=== PATIENT | female | born 1945 | race Hispanic/Latino ===

== ENCOUNTER 2024-05-04 11:39 | Inpatient (IN) | payer MEDICARE ==
[~2024-05-04] VITALS: Ht 152.4 cm; Wt 53.5 kg
[2024-05-04 11:43] VITALS: TEMP 98.3
[2024-05-04] MEDS: ASPIRIN 81 MG CHEW TAB PO ONE ×2 (12:12→13:05)
[2024-05-04] MEDS: FAMOTIDINE 20 MG/2 ML VIAL IV ONE (12:12)
[2024-05-04] MEDS: ACETAMINOPHEN 325 MG TAB PO ONE (12:13)
[2024-05-04] MEDS ORDERED: SODIUM CHLORIDE FLUSH 10 ML SYR INJ PRN (13:00)
[2024-05-04] MEDS: FAMOTIDINE 20 MG TAB PO SCH (13:00)
[2024-05-04] MEDS ORDERED: ZOLPIDEM TARTRATE 5 MG TAB PO PRN (13:15)
[2024-05-04] MEDS ORDERED: ONDANSETRON HCL INJ 2MG/ML 2ML 2 MG/ML VIAL IV PRN (13:15)
[2024-05-04] MEDS ORDERED: DIPHENHYDRAMINE HCL INJ 50 MG/ML VIAL IV PRN (13:15)
[2024-05-04] MEDS ORDERED: ACETAMINOPHEN 325 MG TAB PO PRN (13:15)
[2024-05-04 13:34] VITALS: PULSE 61; RESP 16
[2024-05-04 15:20] VITALS: BP 148/75; PULSE 62; RESP 18; TEMP 98.1; O2SAT 100
[2024-05-04 15:26] VITALS: BP 145/77; PULSE 62; RESP 18; TEMP 98.1; O2SAT 100
[2024-05-04] MEDS: METOPROLOL TARTRATE 25 MG TAB PO SCH (16:25)
[2024-05-04 19:53] VITALS: BP 148/75; PULSE 62; RESP 18; TEMP 98.1; O2SAT 100
[2024-05-04 20:25] VITALS: BP 95/48; PULSE 61; RESP 17; TEMP 97.9; O2SAT 100
[2024-05-04] MEDS: SIMVASTATIN 40 MG TAB PO SCH (21:09)
[2024-05-04 22:35] LABS: TROPONIN I 0.01 ng/mL (0-0.300)
[2024-05-04] MEDS ORDERED: LORATADINE 10 MG TAB PO PRN (23:15)
[2024-05-04] MEDS ORDERED: DOCUSATE SODIUM 100 MG CAP PO PRN (23:15)
[2024-05-04] MEDS ORDERED: FLUTICASONE PROPIONATE NASAL SPRAY NS PRN (23:15)
[2024-05-04] MEDS ORDERED: GUAIFENESIN/DEXTROMETHORPHAN LIQD 5 ML UDC PO PRN (23:15)
[2024-05-04] MEDS ORDERED: HYDRALAZINE HCL 20 MG/ML VIAL IV PRN (23:15)
[2024-05-04] MEDS ORDERED: MELATONIN 3 MG TAB PO PRN (23:15)
[2024-05-05] VITALS (9 sets, daily range): BP systolic 97–150; BP diastolic 55–90; PULSE 51–65; RESP 17–18; TEMP 97.6–98.6; O2SAT 98–100
[2024-05-05 07:06] LABS: BASOPHILS # (AUTO) 0.1 (0.0-0.1); BASOPHILS % 2.3 % (0.0-1.0); EOSINOPHILS # (AUTO) 0.4 (0.0-0.4); EOSINOPHILS % 9.6 % (0.0-6.0); HEMATOCRIT 39.4 % (34.2-44.1); HEMOGLOBIN 12.2 g/dL (12.0-16.0); LYMPHOCYTES # (AUTO) 1.1 (1.0-3.2); MEAN CORPUSCULAR HEMOGLOBIN 29.8 pg (28-32); MEAN CORPUSCULAR VOLUME 96.1 fL (81-99); MONOCYTES # (AUTO) 0.4 (0.2-0.8); MONOCYTES % 9.1 % (4.4-11.3); NEUTROPHILS # (AUTO) 2.3 (2.1-6.9); NEUTROPHILS % 53.8 % (38.7-80.0); PLATELET COUNT 203 x10e3/uL (140-360); RED CELL DISTRIBUTION WIDTH 13.6 % (11.7-14.4); WHITE BLOOD COUNT 4.28 x10e3/uL (4.8-10.8)
[2024-05-05 07:41] LABS: ANION GAP 11.1 mmol/L (8-16); CALCIUM 8.7 mg/dL (8.4-10.2); CHOL/HDL RATIO 2.3 (3.0-3.6); CREATININE, SERUM 1.28 mg/dL (0.57-1.11); POTASSIUM 4.1 mmol/L (3.5-5.1)
[2024-05-05 07:48] LABS: TROPONIN I 0.007 ng/mL (0-0.300)
[2024-05-05] MEDS: ASPIRIN 81 MG ENTERIC COATED PO SCH (09:06)
[2024-05-05] MEDS: MULTIVITAMINS/MINERALS TAB PO SCH (09:06)
[2024-05-05] MEDS ORDERED: REGADENOSON 0.4 MG/5 ML SYR IV ONE (15:24)
[2024-05-05] MEDS: FAMOTIDINE 20 MG TAB PO ONE (21:37)
[2024-05-06] VITALS: BP 105/58; PULSE 56; RESP 16; TEMP 98.1; O2SAT 99
[2024-05-06 04:00] VITALS: BP 109/61; PULSE 64; RESP 16; TEMP 98.2; O2SAT 100
[2024-05-06 08:19] VITALS: BP 107/60; PULSE 62; RESP 17; TEMP 98; O2SAT 100
[2024-05-06 12:00] VITALS: BP 114/78; PULSE 67; RESP 17; TEMP 97.9; O2SAT 100
== END 2024-05-06 12:45 | disposition home or self-care (01) | DRG 153 ==
LOC: FSED 11:42 → ERHOLD 12:54 → MED/SURG3 15:51 → OBSVTOIN 05-06 10:32
PROVIDERS: ADMIT Internal Medicine; ATTEND Internal Medicine
DX: J06.9 Acute upper respiratory infection, unspecified (principal); I27.20 Pulmonary hypertension, unspecified; R07.89 Other chest pain; K21.9 Gastro-esophageal reflux disease without esophagitis; E78.00 Pure hypercholesterolemia, unspecified; J30.9 Allergic rhinitis, unspecified; R53.81 Other malaise; M19.90 Unspecified osteoarthritis, unspecified site; Z11.52 Encounter for screening for COVID-19; Z59.6 Low income; Z90.49 Acquired absence of other specified parts of digestive tract
CPT/HCPCS: 0223U; 36415; 71046; 78452; 80048; 80053; 80061; 81003; 82550; 82553; 83518; 83880; 84484; 85025; 85379; 87400; 93005; 93017; 93306; 96374; 99284; A9502; G0378

== ENCOUNTER 2024-12-25 12:51 | Emergency (ER) | payer MEDICARE ==
[~2024-12-25] VITALS: Ht 154.9 cm; Wt 53.1 kg
[2024-12-25 13:44] VITALS: TEMP 97.6
[2024-12-25 17:10] VITALS: PULSE 82; RESP 16
[2024-12-25] MEDS ORDERED: MACROBID 100 M100 MG PO (17:41)
[2024-12-25] MEDS: ACETAMINOPHEN 325 MG TAB PO ONE (18:12)
[2024-12-25 18:21] VITALS: BP 147/79; PULSE 82; RESP 16; TEMP 98.3; O2SAT 99
== END 2024-12-25 18:24 | disposition home or self-care (01) ==
LOC: FSED 13:53
DX: R10.30 Lower abdominal pain, unspecified (principal); N39.0 Urinary tract infection, site not specified; R42 Dizziness and giddiness; R53.83 Other fatigue; R94.31 Abnormal electrocardiogram [ECG] [EKG]; I25.2 Old myocardial infarction; Z96.653 Presence of artificial knee joint, bilateral
CPT/HCPCS: 74176; 87086; 99284